=== PATIENT | female | born 1990 | race Caucasian/White ===

== ENCOUNTER 2018-02-27 16:22 | Inpatient (IN) | payer OTHER ==
[2018-02-27 16:56] VITALS: BMI 42.0
[2018-02-27] MEDS ORDERED: NS / Oxytocin 40 units/1000ml 1,000 ML IV PRN (18:48)
[2018-02-27] MEDS ORDERED: Ibuprofen 800 MG TAB PO PRN (18:48)
[2018-02-27] MEDS ORDERED: Ondansetron HCl/PF 4 MG/2 ML Vial IVP PRN ×2 (18:48→20:24)
[2018-02-27] MEDS ORDERED: HYDROcodone/Acetaminophen 5/325 mg Tablet PO PRN ×2 (18:48)
[2018-02-27] MEDS ORDERED: Lidocaine 1% (PF) 30 ML VIAL SC PRN (18:48)
[2018-02-27] MEDS ORDERED: Lactated Ringer's 1,000 ML IV SCH (19:00)
[2018-02-27 19:34] LABS: Hemoglobin 14.8 g/dL (12.0-16.0); Mean Corpuscular HGB CONC 35.2 g/dL (32.0-36.0); Mean Corpuscular Hemoglobin 32.3 pg (27.0-31.0); Mean Corpuscular Volume 91.6 fL (78.0-98.0); Mean Platelet Volume 7.2 fL (7.4-10.4); Platelet Count 274 thou/uL (130-400); RBC Distribution Width 12.1 % (11.5-14.5); Red Blood Cell (RBC) Count 4.59 mill/uL (4.20-5.40)
[2018-02-27] MEDS: Bupivacaine 0.75% 13.4 ML, fentaNYL Citrate/PF 400 MCG in Sodium Chloride 0.9% 78.6 ML EPIDURAL SCH (20:08)
[2018-02-27] MEDS: Dextrose 5%-Lactated Ringers 1,000 ML IV SCH (20:17)
[2018-02-27 20:23] LABS: HBSAg Index 0.17 S/CO (0-0.99); Hep B Surf Ag Non-Reactive S/CO (NonReactive)
[2018-02-27 20:24] LABS: Syphilis Antibody Nonreactive (Nonreactive); Syphilis Antibody Index 0.04 S/CO (<1.00 Non-Reactive)
[2018-02-27] MEDS ORDERED: ePHEDrine/0.9% NaCl/PF SYRINGE 50 mg/10 ml SLOW IVP PRN (20:24)
[2018-02-27] MEDS ORDERED: Promethazine HCl 25 MG/ML VIAL IM PRN (20:24)
[2018-02-27] MEDS ORDERED: Lactated Ringer's 500 ML IV PRN (20:24)
[2018-02-27] MEDS ORDERED: Acetaminophen 325 MG TAB PO PRN (20:24)
[2018-02-27] MEDS ORDERED: diphenhydrAMINE 50 MG/ML VIAL IVP PRN (20:24)
[2018-02-27] MEDS ORDERED: Eucerin (Mineral Oil/Petrolatum,White) 30 gm Jar TOP PRN (20:24)
[2018-02-27] MEDS ORDERED: Naloxone HCl 0.4 mg/ml Vial IVP PRN ×2 (20:24)
[2018-02-27] MEDS ORDERED: Communication Order-Pharmacy FS SCH (20:30)
[2018-02-27] MEDS ORDERED: fentaNYL Citrate/PF 400 MCG, Bupivacaine 0.5% 20 ML in Sodium Chloride 0.9% 72 ML EPIDURAL SCH (20:30)
[2018-02-27] MEDS ORDERED: NS w/ Oxytocin 10 units 500 ML IV SCH (22:00)
[2018-02-28] MEDS: Bupivacaine 0.75% 13.4 ML, fentaNYL Citrate/PF 400 MCG in Sodium Chloride 0.9% 78.6 ML EPIDURAL SCH ×3 (02:51→14:10)
[2018-02-28] MEDS: Dextrose 5%-Lactated Ringers 1,000 ML IV SCH (04:34)
[2018-02-28] MEDS ORDERED: Bupivacaine/Epinephrine 0.5% 10 ML VIAL ONE (11:11)
[2018-02-28] MEDS ORDERED: Bupivacaine 0.25% HCL 30 ML VIAL ONE (11:11)
[2018-02-28] MEDS ORDERED: Bupivacaine/Epinephrine 0.25% 30 ML VIAL ONE (11:11)
[2018-02-28] MEDS ORDERED: Sodium Chloride 0.9% (PF) 10 ML VIAL ONE (11:11)
[2018-02-28] MEDS ORDERED: Lactated Ringer's 1,000 ML IV SCH (12:15)
--- NOTE | 2018-02-28 15:08 | PDOC.OPDEL ---
OB Operative/Delivery Note Delivery Dr/Surgeon: adrian Pre-Delivery Diagnosis: active labor Procedure/Post Delivery Dx: spontaneous vaginal delivery Weeks gestation: 40 Anesthesia: epidural - Findings A Sex: male Weight: 0 oz - 1 min: 9 - 5 min: 9 - Additional Findings/Plan Placenta delivered: spontaneous Repaired Obstetrical Laceration: 2nd degree Estimated blood loss: 329 Post delivery plan: routine recovery
[2018-02-28] MEDS ORDERED: Acetaminophen/Codeine 30-300mg Tablet PO PRN ×2 (18:07)
[2018-02-28] MEDS ORDERED: Adacel (T-DAP) 0.5 ML VIAL IM ONE (18:07)
[2018-02-28] MEDS ORDERED: Zolpidem Tartrate 5 MG TAB PO PRN (18:07)
[2018-02-28] MEDS ORDERED: Lanolin Ointment 7 GM TUBE TOP PRN (18:07)
[2018-02-28] MEDS ORDERED: Bisacodyl 10 MG SUPP PR PRN (18:07)
[2018-02-28] MEDS ORDERED: NS / Oxytocin 40 units/1000ml 1,000 ML IV SCH (18:07)
[2018-02-28] MEDS ORDERED: diphenhydrAMINE 25 MG CAP PO PRN (18:07)
[2018-02-28] MEDS ORDERED: Milk Of Magnesia 30 ML UDCUP PO PRN (18:07)
[2018-02-28] MEDS ORDERED: Ondansetron HCl/PF 4 MG/2 ML Vial IVP PRN (18:07)
[2018-02-28] MEDS ORDERED: Preparation H Ointment 28 GM TUBE PR PRN (18:07)
[2018-02-28] MEDS ORDERED: Ferrous Sulfate 325 MG TAB PO SCH (18:30)
[2018-02-28] MEDS: Docusate Calcium (SURFAK) 240 MG CAP PO SCH (21:22)
[2018-02-28] MEDS: Ibuprofen 800 MG TAB PO SCH (21:22)
[2018-02-28] MEDS ORDERED: Benzocaine/Menthol 20-0.5% 60 ML CAN TOP PRN (22:25)
[2018-03-01] MEDS: Ibuprofen 800 MG TAB PO SCH ×3 (05:33→21:14)
[2018-03-01] MEDS ORDERED: Ferrous Sulfate 325 MG TAB PO SCH (08:00)
[2018-03-01] MEDS: Prenatal Vitamin 1 TAB PO SCH (09:09)
[2018-03-01] MEDS: Docusate Calcium (SURFAK) 240 MG CAP PO SCH ×2 (09:09→19:43)
[2018-03-02] MEDS: Ibuprofen 800 MG TAB PO SCH ×2 (05:46→06:40)
[2018-03-02 08:36] VITALS: BP 112/67; TEMP 98.1
[2018-03-02] MEDS: Prenatal Vitamin 1 TAB PO SCH (09:35)
[2018-03-02] MEDS: Docusate Calcium (SURFAK) 240 MG CAP PO SCH (09:35)
--- NOTE | 2018-03-02 12:43 | DIS ---
DATE OF ENCOUNTER: 03/02/2018 DATE OF ADMISSION: 02/28/2018 DATE OF DISCHARGE: 03/02/2018 ADMITTING DIAGNOSES: 1. Intrauterine at 37 weeks and 4 days. 2. Spontaneous rupture of membranes. 3. Early labor. 4. GBS negative. DISCHARGE DIAGNOSES: 1. Intrauterine at 40 weeks. 2. Spontaneous rupture of membranes. 3. Early labor. 4. GBS negative. PROCEDURE: Term-spontaneous vaginal delivery. CONSULTATIONS: None. HOSPITAL COURSE: The patient is a 28-year-old primipara at 40 weeks, who presented to Labor and [facility] very having uterine contractions. During evaluation, the patient spontaneously ruptured her membrane s and was admitted for active management. Her labor course resulted in a normal vaginal delivery, an d after immediate recovery, was sent to for continued care. Her course has bee n uncomplicated. She is tolerating p.o., voiding on her own, having decreased lochia, and good pain control. Her course has been uncomplicated. She has been tolerating p.o., voiding on her own, having decreased lochia, and good pain control. She is now day #2 and has no compla ints. PHYSICAL EXAMINATION: VITAL SIGNS: Today blood pressure is 106/55, temperature 97.7, pulse of 87, respiratory rate of 17. GENERAL: She appears to be in no acute distress. She is alert and oriented, cooperative and pleasan t to interact with. HEAD: Normocephalic, atraumatic. LUNGS: Clear to auscultation bilaterally. Fundus is firm. EXTREMITIES: Nontender, nonedematous. The patient is being discharged to home with [id number] ibuprofen. She has instructions to robinson e an appointment with Dr. Odell in 6 weeks for routine followup. She has instructions to seek medic al attention sooner if she experiences fever or increasing pain or bleeding.
== END 2018-03-02 11:45 | disposition home or self-care (01) | DRG 775 ==
LOC: L&D/OP 16:22 → L&D 19:06 → 3SW 02-28 17:44
PROVIDERS: ADMIT Obstetrics & Gynecology; ATTEND Obstetrics & Gynecology
PROC: 0KQM0ZZ Repair Perineum Muscle, Open Approach (ICD-10-PCS; principal; 2018-02-28)
PROC: 10E0XZZ Delivery of Products of Conception, External Approach (ICD-10-PCS; 2018-02-28)
DX: O70.1 Second degree perineal laceration during delivery (principal); Z37.0 Single live birth; Z3A.40 40 weeks gestation of pregnancy
CPT/HCPCS: 36415; 85027; 86780; 86850; 86900; 86901; 87340; J2001; J2405; J3010; J3490; J7050; S0020

== ENCOUNTER 2020-07-30 11:56 | Emergency (ER) | payer OTHER ==
[2020-07-30 12:32] LABS: Bacteria/HPF None Seen HPF (None Seen); Bilirubin Negative (Negative); Blood, Urine 2+ (Negative); Clarity Clear (Clear); Glucose, Urine (Dipstick) Normal (Negative); Ketone, Urine Trace mg/dL (Negative); Leukocyte Negative Leu/uL (Negative); Mucous/LPF 1+ LPF (<2+); Nitrite Negative (Negative); Protein, Urine (Dipstick) Negative (Neg-Trace); RBC/HPF 0-3 HPF (0-3); Specific Gravity, Urine 1.018 (1.002-1.036); Urobilinogen Normal mg/dL (Less than 2); WBC/HPF 0-3 HPF (0-3); pH, Urine 5.5 (5.0-9.0)
--- NOTE | 2020-07-30 13:04 | ULT ---
FIRST TRIMESTER OBSTETRICAL ULTRASOUND INDICATION: History of 11.2 week with small amount of vaginal bleeding TECHNIQUE: Grayscale, M-mode Doppler, color Doppler and spectral Doppler images were obtained. Jose marcus is focused on the clinical indication. Transabdominal and transvaginal exam was performed. COMPARISON: No relevant prior studies available. FINDINGS: Uterus: The uterus measured 12.5 x 8.1cm. Intrauterine gestation: Dichorionic diamniotic twin . Yolk Sac:Not definitely visualized Pole :There are 2 separate gestational sacs with 2 separate poles identified. heart rate: Cardiac activity of A, right of midline, measures 158 bpm. heart rate o f baby B within the left uterus is 158 bpm . Subchorionic Hemorrhage: None. BIOMETRY: The crown-rump length: The crown-rump length of fetus a, right of midline, is 4.23 cm. The crown-rum p length of fetus B, left of midline is 4.25 cm.. The mean sac diameter: Mean sac diameter of fetus a is 4.52 cm. Mean sac diameter of fetus B is 4.2 cm. . The average gestational age by ultrasound isfor fetus A is 10 weeks and 4 days with an estimated due date of February 21, 2021 and for fetus B the estimated gestational age is 10 weeks and 3 days with estimated due date of February 22, 2021.. The clinical age is11 weeks and 2 dayswith estimated due date ofJu2020. Ovaries: Right and left ovary were not identified. CUL-DE-SAC: No free fluid IMPRESSION: 1. Live dichorionic diamniotic twin pregnancies with size and dates as above. 2. No acute abnormality demonstrated.
== END 2020-07-30 13:26 | disposition home or self-care (01) ==
LOC: ERS 11:56
DX: O20.9 Hemorrhage in early pregnancy, unspecified (principal); Z3A.11 11 weeks gestation of pregnancy
CPT/HCPCS: 36415; 76856; 81003; 81015; 84702; 86900; 86901